=== PATIENT | female | born 1990 | race Caucasian/White ===

== ENCOUNTER 2018-05-06 22:00 | Inpatient (IN) ==
[2018-05-06] MEDS ORDERED: LIDOCAINE HCL 50 ML VIAL PERI PRN (22:35)
[2018-05-06] MEDS ORDERED: OXYTOCIN/DEXTROSE 5%-WATER 30 UNITS/500 ML BAG IV ONE (22:35)
[2018-05-06] MEDS ORDERED: RINGER'S SOLUTION,LACTATED 1,000 ML IV ONE (23:33)
[2018-05-07] MEDS ORDERED: NALOXONE HCL 1 MG/1 ML SYRG IV PRN
[2018-05-07] MEDS ORDERED: fentaNYL CITRATE/PF 50 MCG/ML AMPUL IT SCH
[2018-05-07] MEDS ORDERED: BUPIVACAINE HCL/0.9 % NACL/PF 250 ML EP PRN
[2018-05-07] MEDS ORDERED: ONDANSETRON HCL/PF 2 MG/ML VIAL IV PRN
--- NOTE | 2018-05-07 00:53 | ANES ---
Post Anesthesia Discharge - Transfer of Care Transfer of Care handoff given to nurse: Yes - Anesthesia Post Op Note Anesthesia Post Op Note: Care transferrred to OB RN
--- NOTE | 2018-05-07 00:53 | ANES ---
Anesthesia Pre Procedure Eval Vitals/Labs: Last Vital Signs Temp 36.4 C 05/06/18 22:40 Pulse 79 05/06/18 22:40 Resp 16 05/06/18 22:40 BP 110/62 05/06/18 22:40 HOME MEDICATIONS #103/Iron Fumarate/FA [ Tablet] 1 ea PO DAILY 01/02/15 [Last Taken 05/05/18 21:00] ferrous sulfate 325 mg (65 mg iron) tablet,delayed release 325 mg PO DAILY #30 tab 02/15/18 [Last Taken 05/05/18 21:00] Allergies/Adverse Reactions: Allergies Allergy/AdvReac Type Severity Reaction Status Date / Time No Known Allergies Allergy Verified 04/26/18 15:18 - Planned Procedure Planned Procedure: labor Medication List Reviewed:: Yes Allergies Verified: Yes Medical History (Last Reviewed 05/07/18 @ 00:52 by Isaias Baum CRNA) Abnormal Pap smear of cervix Onset Date: 12/20/10 Ascus pap HPV positive Anemia Onset Date: 02/15/18 w/ Currently Onset Date: 10/12/17 Pancreatitis Onset Date: ~2014 Seizures Onset Date: Unknown as a baby Surgical History (Last Reviewed 05/07/18 @ 00:52 by Isaias Baum CRNA) History of colposcopy Onset Date: ~2010 abnormal pap smear Hx laparoscopic cholecystectomy Onset Date: 01/23/15 Tinguely-with cholangiogram Family History (Last Reviewed 05/07/18 @ 00:52 by Isaias Baum CRNA) Aunt Cancer Paternal stomach cancer Father Alive and well Mother Anemia Uterine fibroid hysterectomy Grandmother Breast cancer Paternal Grandfather Diabetes Maternal - Family Anesthesia History Family History:: no untoward family reactions to anesthesia - Airway/Neck/Teeth Within Normal Limits:: Yes Teeth Condition: intact Neck Exam: full range of motion Mallampatti Score: 2 Thyromental (T-M) distance: > 6 cm Mandibulo Hyoid distance: > 3 cm - Respiratory Respiratory Physical: lungs clear Smoking Status: Never smoker Sleep Apnea currently treated: No Sleep Apnea by current assessment: No - Cardiovascular Tolerate Activity: Good Heart Sounds: S1 & S2, Regular - Anesthesia Assessment and Plan ASA Class: PS, II, E Anesthesia Type Plan: Epidural Planned difficult intubation/equipment available: No
--- NOTE | 2018-05-07 00:54 | ANES ---
Post Anesthesia Assessment - Vital Signs Vitals: Last Vital Signs Temp 36.4 C 05/06/18 22:40 Pulse 79 05/06/18 22:40 Resp 16 05/06/18 22:40 BP 110/62 05/06/18 22:40 Airway Patency: Normal - Mental Status Level Of Consciousness: Awake - Pain Level Pain Score: 1 - N/V Assessment Nausea/Vomiting Presence: None Dehydration:: No
--- NOTE | 2018-05-07 00:55 | ANES ---
Anesthesia Procedure Note Procedure Note: ANESTHESIA PROCEDURE NOTE Date of Procedure: [] 05/07/2018 Time of procedure:[]. 0040 Performed by: Pete Baum CRNA Recycling Technician: None. Preprocedure diagnosis: Active labor. Post procedure diagnosis: Same. Procedure: Insertion of labor epidural. Indications: The patient is a [27] -year-old [multigravida] female in active labor requesting labor epidural for pain management. Findings: See below. Details of the procedure: The patient was placed in a sitting position. Back was prepped with DuraPrep. Patient was then draped in a sterile fashion. Lidocaine 1% was infiltrated to the skin and subcutaneous tissues at the level of the L3 4 interspace. The epidural space was identified using a 18-gauge Tuohy needle with opcc-cu-[id number] technique. 20 mcg fentanyl was given intrathecally using a 27 ga. spinal needle. Epidural catheter was inserted without difficulty. Negative test dose was elicited using 5 mL of 1.5% preservative-free lidocaine plus epinephrine 1 200,000. The epidural catheter was then taped and secured in place. EBL: Minimal. Fluids: N/A. Specimen: N/A. Post procedure condition: The patient tolerated the procedure well. No complications were noted. Thank you for this consultation. Crawley CRNA
--- NOTE | 2018-05-07 04:35 | HP ---
Chief Complaint - Chief Complaint Date of Service: 05/07/18 Time of Service: 04:34 Chief Complaint: contractions History of Present Illness: 27 yo at 39 2/7 wks at admission complaining of contractions and LOF since around 2129 last pm. This complicated by h/o seizures (2014). Rh positive Rubella - equivocal GBS negative Medical History (Last Reviewed 05/07/18 @ 05:03 by Primo Singleton DO) Abnormal Pap smear of cervix Onset Date: 12/20/10 Ascus pap HPV positive Anemia Onset Date: 02/15/18 w/ Currently Onset Date: 10/12/17 Pancreatitis Onset Date: ~2014 Seizures Onset Date: Unknown as a baby Surgical History: Surgical History (Last Reviewed 05/07/18 @ 05:03 by Primo Singleton DO) History of colposcopy Onset Date: ~2010 abnormal pap smear Hx laparoscopic cholecystectomy Onset Date: 01/23/15 Tinguely-with cholangiogram Family History: Family History (Last Reviewed 05/07/18 @ 05:03 by Primo Singleton DO) Aunt Cancer Paternal stomach cancer Father Alive and well Mother Anemia Uterine fibroid hysterectomy Grandmother Breast cancer Paternal Grandfather Diabetes Maternal Social History: Preferred Language Belarusian Smoking Status Never smoker Abuse History No History of abuse Psych History No pertinent hx (Last Updated 05/03/18 @ 12:48 by Primo Singleton DO) No Social History Section defined Review Of Systems (GEN) - Review of Systems Generalized/Overall Review: Present: No Symptoms Reported EENTM: Present: No Symptoms Reported Respiratory: Present: No Symptoms Reported Cardiac: Present: No Symptoms Reported Abdominal: Present: Other - contractions Genitourinary: Present: Other - LOF around 1929 Musculoskeletal: Present: No Symptoms Reported Neurological: Present: No Symptoms Reported Skin: Present: No Symptoms Reported Immunizations: IMMUNIZATION HX Immunizations Up to Date Yes History of Influenza Vaccine No Hx Pneumococcal Vaccination No Allergies/Adverse Reactions: Allergies Allergy/AdvReac Type Severity Reaction Status Date / Time No Known Allergies Allergy Verified 04/26/18 15:18 Home Medications: HOME MEDICATIONS #103/Iron Fumarate/FA [ Tablet] 1 ea PO DAILY 01/02/15 [Last Taken 05/05/18 21:00] ferrous sulfate 325 mg (65 mg iron) tablet,delayed release 325 mg PO DAILY #30 tab 02/15/18 [Last Taken 05/05/18 21:00] Exam - Exam Vital Signs: Vital Signs - Last Taken Temp 36.4 C 05/06/18 22:40 Pulse 79 05/06/18 22:40 Resp 16 05/06/18 22:40 BP 110/62 05/06/18 22:40 Constitutional: Present: Alert, Oriented x3, Cooperative, Mild distress - due to contractions ENT Exam: Present: hearing grossly normal Breasts: Present: Exam deferred Respiratory: Present: lungs clear, no respiratory distress Cardiovascular/Chest: Present: regular rate, rhythm Abdomen: Present: soft, nontender, other - gravid /Rectal: Present: Other - 4/80/-2 Extremity: Present: no pedal edema, no calf tenderness Skin Exam: Present: normal color, warm/dry, no cyanosis Neurologic: Present: alert, normal mood/affect, oriented x 3 Appearance: Present: appropriate appearance, appropriate insight Assessment/Plan - Assessment/Plan (1) Labor established Assessment: Admit for routine management of labor. Epidural and pitocin PRN. Problem: Acute (2) Spontaneous rupture of amniotic membranes Problem: Acute
[2018-05-07] MEDS ORDERED: IBUPROFEN 800 MG TABLET PO PRN (04:59)
[2018-05-07] MEDS ORDERED: oxyCODONE HCL/ACETAMINOPHEN 1 TAB TABLET PO PRN ×2 (04:59)
[2018-05-07] MEDS ORDERED: BISACODYL 10 MG SUPP.RECT RC PRN (04:59)
[2018-05-07] MEDS ORDERED: SENNOSIDES 8.6 MG TABLET PO PRN (04:59)
[2018-05-07] MEDS ORDERED: HYDROCORTISONE 30 APPL TUBE TP PRN (04:59)
[2018-05-07] MEDS ORDERED: OXYTOCIN/DEXTROSE 5%-WATER 30 UNITS/500 ML BAG IV ONE (04:59)
[2018-05-07] MEDS ORDERED: GLYCERIN/WITCH HAZEL LEAF 40 APPL BOX TP PRN (04:59)
[2018-05-07] MEDS ORDERED: BENZOCAINE/MENTHOL 81 SPRAY CAN TP PRN (04:59)
--- NOTE | 2018-05-07 05:02 | OR ---
Operative Report - Dictated Report Narrative: Spontaneous vaginal delivery of viable male at 0444 on 05/07/2018 with Apgars 9 and 9, weighing 3030 g and JCARLOS position with tight nuchal cord and arm cord 1. Cord clamping delayed approximately 1 minute Placenta delivered complete, intact, with three vessel cord Estimated blood loss: less than 50 ml Anesthesia: epidural Lacerations: None
[2018-05-07] MEDS: DOCUSATE SODIUM 100 MG CAPSULE PO SCH ×2 (21:22)
--- NOTE | 2018-05-08 07:07 | PN ---
Subjective - Date and Time Seen Date: 05/08/18 Time: 07:05 Objective - Vitals Vitals: Last Vital Signs Temp 36.8 C 05/07/18 14:50 Pulse 94 05/07/18 21:22 Resp 18 05/07/18 21:22 BP 107/74 05/07/18 21:22 Pulse Ox 97 05/07/18 21:22 Patient denies complaints. Plans to breast-feed. Lochia wnl Abdomen - soft, nontender Uterus - firm, at umbilicus - 1 No calf tenderness Impression: day #1 - s/p spontaneous vaginal delivery. Baby transferred to [facility] for respiratory issues last night. Patient requesting early discharge to be with baby. Plan: Continue routine care. Discharge instructions given. Follow- up in the office in 4 weeks. Cauti Physician Documentation - Urinary Catheter Management Urethral (Torre) Date of Insertion: 05/07/18 Time of Insertion: 00:57 Date of Removal: 05/07/18 Time of Removal: 04:20 Assessment/Plan - Problems/Diagnosis (1) Labor established Problem: Acute (2) Spontaneous rupture of amniotic membranes Problem: Acute
[2018-05-08] MEDS: DOCUSATE SODIUM 100 MG CAPSULE PO SCH (07:56)
[2018-05-08 07:59] VITALS: BP 120/71
== END 2018-05-08 09:00 | disposition home or self-care (01) | DRG 998 ==
LOC: OB 22:00
PROVIDERS: ADMIT Obstetrics & Gynecology; ATTEND Obstetrics & Gynecology
CPT/HCPCS: 59025

== ENCOUNTER 2019-12-02 00:15 | Inpatient (IN) ==
[2019-12-02] MEDS ORDERED: DEXTROSE 5%-LACTATED RINGERS 1,000 ML IV PRN (00:40)
[2019-12-02] MEDS ORDERED: RINGER'S SOLUTION,LACTATED 1,000 ML IV PRN (00:40)
[2019-12-02] MEDS ORDERED: OXYTOCIN/DEXTROSE 5%-WATER 30 UNITS/500 ML BAG IV ONE ×2 (00:43→07:47)
[2019-12-02] MEDS ORDERED: ONDANSETRON HCL/PF 2 MG/ML VIAL IV PRN (01:08)
[2019-12-02] MEDS ORDERED: NALOXONE HCL 1 MG/1 ML SYRG IV PRN (01:08)
[2019-12-02] MEDS ORDERED: BUPIVACAINE HCL/0.9 % NACL/PF 250 ML EP PRN (01:08)
[2019-12-02] MEDS ORDERED: fentaNYL CITRATE/PF 50 MCG/ML AMPUL IT SCH (01:15)
--- NOTE | 2019-12-02 02:05 | ANES ---
Anesthesia Pre Procedure Eval Vitals/Labs: Last Vital Signs Temp 36.2 C 12/02/19 00:24 Pulse 78 12/02/19 00:24 Resp 22 H 12/02/19 00:24 BP 120/74 12/02/19 00:24 Pulse Ox 98 12/02/19 00:24 HOME MEDICATIONS prenat.vits,vangie,lsc-ulfu-[id number] 1 tab PO DAILY 05/16/19 [Last Taken Unknown] Allergies/Adverse Reactions: Allergies Allergy/AdvReac Type Severity Reaction Status Date / Time No Known Allergies Allergy Verified 12/02/19 00:46 - Planned Procedure Planned Procedure: LABOR Medication List Reviewed:: Yes Allergies Verified: Yes Medical History (Last Reviewed 12/02/19 @ 02:04 by Isaias Baum CRNA) Abnormal Pap smear of cervix Onset Date: 12/20/10 Ascus pap HPV positive Anemia Onset Date: 02/15/18 w/ Currently Onset Date: 05/16/19 Pancreatitis Onset Date: ~2014 Seizures Onset Date: Unknown as a baby Surgical History (Last Reviewed 12/02/19 @ 02:04 by Isaias Baum CRNA) History of colposcopy Onset Date: ~2010 abnormal pap smear Hx laparoscopic cholecystectomy Onset Date: 01/23/15 Tinguely-with cholangiogram Family History (Last Reviewed 12/02/19 @ 02:04 by Isaias Baum CRNA) Aunt Cancer Paternal stomach cancer Father Alive and well Mother Anemia Uterine fibroid hysterectomy Grandmother Breast cancer Paternal Grandfather Diabetes Maternal - Family Anesthesia History Family History:: no untoward family reactions to anesthesia - Airway/Neck/Teeth Within Normal Limits:: Yes Teeth Condition: intact Neck Exam: full range of motion Mallampatti Score: 2 Thyromental (T-M) distance: > 6 cm Mandibulo Hyoid distance: > 3 cm - Respiratory Respiratory Physical: lungs clear Smoking Status: Never smoker Sleep Apnea currently treated: No Sleep Apnea by current assessment: No - Cardiovascular Tolerate Activity: Good Heart Sounds: S1 & S2, Regular - Gastrointestinal NPO since: MN - Anesthesia Assessment and Plan ASA Class: PS, II, E Anesthesia Type Plan: Epidural Planned difficult intubation/equipment available: No
--- NOTE | 2019-12-02 02:06 | ANES ---
Post Anesthesia Assessment - Vital Signs Vitals: Last Vital Signs Temp 36.2 C 12/02/19 00:24 Pulse 78 12/02/19 00:24 Resp 22 H 12/02/19 00:24 BP 120/74 12/02/19 00:24 Pulse Ox 98 12/02/19 00:24 Airway Patency: Normal - Mental Status Level Of Consciousness: Awake - Pain Level Pain Score: 4 - N/V Assessment Nausea/Vomiting Presence: None Dehydration:: No
--- NOTE | 2019-12-02 02:06 | ANES ---
Post Anesthesia Discharge - Transfer of Care Transfer of Care handoff given to nurse: Yes - Anesthesia Post Op Note Anesthesia Post Op Note: Care transferred to OB RN
--- NOTE | 2019-12-02 02:09 | ANES ---
Anesthesia Procedure Note Procedure Note: ANESTHESIA PROCEDURE NOTE Date of Procedure: 12/02/2019 Time of procedure: . Performed by: Pete Baum CRNA Railroad Hand: None. Preprocedure diagnosis: Active labor. Post procedure diagnosis: Same. Procedure: Insertion of labor epidural. Indications: The patient is a 28-year-old multigravida female in active labor requesting labor epidural for pain management. Findings: See below. Details of the procedure: The patient was placed in a sitting position. Back was prepped with DuraPrep. Patient was then draped in a sterile fashion. Lidocaine 1% was infiltrated to the skin and subcutaneous tissues at the level of the L3 4 interspace. The epidural space was identified using a 18-gauge Tuohy needle with eyeg-gu-ugqsztsgxt technique. Attempted intrathecal injection with 27- gauge spinal needle unsuccessful. Unable to puncture the dura. Epidural catheter was inserted without difficulty. Negative test dose was elicited using 5 mL of 1.5% preservative-free lidocaine plus epinephrine 1 200,000. The epidural catheter was then taped and secured in place. EBL: Minimal. Fluids: N/A. Specimen: N/A. Post procedure condition: The patient tolerated the procedure well. No complications were noted. Thank you for this consultation. Crawley CRNA
--- NOTE | 2019-12-02 07:46 | HP ---
Chief Complaint - Chief Complaint Date of Service: 12/02/19 Time of Service: 07:40 Chief Complaint: labor with SROM History of Present Illness: 28 yo at 39 weeks presents to L&D with complaint of SROM (12/01/19 at 2315) and contractions of increased frequency and intensity. This without complications. Rh positve Rubella immune GBS negative Medical History (Last Reviewed 12/02/19 @ 07:43 by Primo Singleton DO) Abnormal Pap smear of cervix Onset Date: 12/20/10 Ascus pap HPV positive Anemia Onset Date: 02/15/18 w/ Currently Onset Date: 05/16/19 Pancreatitis Onset Date: ~2014 Seizures Onset Date: Unknown as a baby Surgical History: Surgical History (Last Reviewed 12/02/19 @ 07:43 by Primo Singleton DO) History of colposcopy Onset Date: ~2010 abnormal pap smear Hx laparoscopic cholecystectomy Onset Date: 01/23/15 Tinguely-with cholangiogram Family History: Family History (Last Reviewed 12/02/19 @ 07:43 by Primo Singleton DO) Aunt Cancer Paternal stomach cancer Father Alive and well Mother Anemia Uterine fibroid hysterectomy Grandmother Breast cancer Paternal Grandfather Diabetes Maternal Social History: (Last Reviewed 12/02/19 @ 07:43 by Primo Singleton DO) Social History: Marital status: household members: spouse, children current occupational status: unemployed current occupation: homemaker Highest education level completed: some college, no degree Service: No Tobacco: Smoking Status: Never smoker Alcohol: alcohol intake: never Substance Use: substance use type: does not use Dietary Habits: caffeine: Yes Type: tea, carbonated beverages Exercise: Physical activity type: none Personal Safety: victim of physical abuse: No victim of emotional abuse: No victim of sexual abuse: No Review Of Systems (GEN) - Review of Systems Generalized/Overall Review: Present: No Symptoms Reported EENTM: Present: No Symptoms Reported Respiratory: Present: No Symptoms Reported Cardiac: Present: No Symptoms Reported Abdominal: Present: Other - contractions Genitourinary: Present: Other - LOF - clear since 2315 last pm Musculoskeletal: Present: No Symptoms Reported Neurological: Present: No Symptoms Reported Skin: Present: No Symptoms Reported Endocrine: Present: No Symptoms Reported Immunizations: IMMUNIZATION HX Immunizations Up to Date Yes History of Influenza Vaccine No Hx Pneumococcal Vaccination No Allergies/Adverse Reactions: Allergies Allergy/AdvReac Type Severity Reaction Status Date / Time No Known Allergies Allergy Verified 12/02/19 00:46 Home Medications: HOME MEDICATIONS prenat.vits,vangie,jfk-kyiq-lvlll 1 tab PO DAILY 05/16/19 [Last Taken Unknown] Exam - Exam Vital Signs: Vital Signs - Last Taken Temp 36.2 C 12/02/19 00:24 Pulse 78 12/02/19 00:24 Resp 22 H 12/02/19 00:24 BP 120/74 12/02/19 00:24 Pulse Ox 98 12/02/19 00:24 Constitutional: Present: Alert, Oriented x3, Cooperative, Moderate distress - from contractions ENT Exam: Present: hearing grossly normal Breasts: Present: Exam deferred Respiratory: Present: lungs clear, no respiratory distress Cardiovascular/Chest: Present: normal peripheral pulses, regular rate, rhythm, edema Abdomen: Present: soft, nontender, no rebound tenderness, other - gravid /Rectal: Present: Other - Cervix 5/50/-2 Extremity: Present: no calf tenderness, lower extremity edema - 1+ Skin Exam: Present: normal color, warm/dry, no cyanosis Neurologic: Present: alert, normal mood/affect, oriented x 3 Appearance: Present: appropriate appearance, appropriate insight Eye contact: Present: cooperative, good eye contact Thoughts: Present: normal thought pattern, normal mood /affect Assessment/Plan - Assessment/Plan (1) Labor established Assessment: Admit for routine management of labor. Epidural PRN. Problem: Acute (2) SROM (spontaneous rupture of membranes) Problem: Acute
[2019-12-02] MEDS ORDERED: IBUPROFEN 800 MG TABLET PO PRN (07:47)
[2019-12-02] MEDS ORDERED: BISACODYL 10 MG SUPP.RECT RC PRN (07:47)
[2019-12-02] MEDS ORDERED: BENZOCAINE/MENTHOL 81 SPRAY CAN TP PRN (07:47)
[2019-12-02] MEDS ORDERED: GLYCERIN/WITCH HAZEL LEAF 40 APPL BOX TP PRN (07:47)
[2019-12-02] MEDS ORDERED: HYDROCORTISONE 30 APPL TUBE TP PRN (07:47)
[2019-12-02] MEDS ORDERED: oxyCODONE HCL/ACETAMINOPHEN 1 TAB TABLET PO PRN (07:47)
[2019-12-02] MEDS ORDERED: SENNOSIDES 8.6 MG TABLET PO PRN (07:47)
--- NOTE | 2019-12-02 07:56 | OR ---
Operative Report - Dictated Report Narrative: Spontaneous vaginal delivery of vigorously crying viable female at 0716 on 12/02/2019 with Apgars 9 and 9, weighing 2953 g in JCARLOS position with left hand at face presentation. Cord clamping delayed approximately 1 minute Placenta delivered complete, intact, with three vessel cord Estimated blood loss: Less than 50 ml Anesthesia: Epidural Lacerations: None
--- NOTE | 2019-12-02 07:56 | PN ---
Progess Note - Interim Date: 12/02/19 Time: 07:56 History for MU History for MU Definition: * The number of deliveries resulting in a live the patient experienced prior to current hospitalization * The previous delivery of live twins or any live multiple gestation is considered one live event. *If primagravida or nulliparous is documented select zero for the number of previous live births. Live Events: Live Events: 2
[2019-12-02] MEDS: DOCUSATE SODIUM 100 MG CAPSULE PO SCH ×2 (09:37→20:38)
[2019-12-02] MEDS: IBUPROFEN 800 MG TABLET PO PRN ×2 (09:38→15:36)
[2019-12-03 07:15] VITALS: BP 109/68
--- NOTE | 2019-12-03 08:48 | PN ---
Subjective - Date and Time Seen Date: 12/03/19 Time: 08:47 Objective - Vitals Vitals: Last Vital Signs Temp 37 C 12/03/19 07:12 Pulse 73 12/03/19 07:12 Resp 16 12/03/19 07:12 BP 109/68 12/03/19 07:12 Pulse Ox 98 12/03/19 07:12 Patient denies complaints. Patient breast-feeding well. Patient considering early discharge to home. Lochia wnl abdomen - soft, nontender Uterus -firm, at umbilicus - 1 no calf tenderness Impression: day #1 - s/p spontaneous vaginal delivery. Plan: Continue routine care. Discharge instructions given the patient in case she decides for early discharge. Assessment/Plan - Problems/Diagnosis (1) Labor established Problem: Acute (2) SROM (spontaneous rupture of membranes) Problem: Acute
[2019-12-03] MEDS: DOCUSATE SODIUM 100 MG CAPSULE PO SCH (09:52)
== END 2019-12-03 11:25 | disposition home or self-care (01) | DRG 806 ==
LOC: OBCLINIC 00:15 → OB 00:38
PROVIDERS: ADMIT Obstetrics & Gynecology; ATTEND Obstetrics & Gynecology
CPT/HCPCS: 59025